=== PATIENT | female | born 2005 | race Caucasian/White ===

== ENCOUNTER 2024-05-27 10:02 | Day surgery (SDC) | payer OTHER ==
[~2024-05-27 10:02] MED LIST: Acetaminophen 500 MG TAB PO SCH
[2024-05-27] MEDS ORDERED: Acetaminophen 500 MG TAB ONE (10:30)
[2024-05-27] MEDS: Acetaminophen 500 MG TAB PO SCH (10:32)
[2024-05-27] MEDS: Ferumoxytol (ERSD) 510 MG in 0.9 % Sodium Chloride 150 ML IVPB SCH (10:52)
[2024-05-27 15:29] VITALS: BP 102/58; TEMP 98.2
== END 2024-05-27 15:34 | disposition home or self-care (01) ==
LOC: ONC/OP 10:02
PROVIDERS: ATTEND Family Medicine
DX: O99.019 Anemia complicating pregnancy, unspecified trimester (principal); Z3A.00 Weeks of gestation of pregnancy not specified
CPT/HCPCS: 96365; 96366; Q0139

== ENCOUNTER 2024-06-24 09:48 | Day surgery (SDC) | payer OTHER ==
[~2024-06-24 09:48] MED LIST changes: +Ferumoxytol (ERSD) 510 MG in 0.9 % Sodium Chloride 150 ML IVPB SCH
[2024-06-24] MEDS ORDERED: Acetaminophen 500 MG TAB ONE (09:53)
[2024-06-24] MEDS: Acetaminophen 500 MG TAB PO SCH (09:54)
[2024-06-24] MEDS: Ferumoxytol (ERSD) 510 MG in 0.9 % Sodium Chloride 150 ML IVPB SCH (10:47)
[2024-06-24 13:00] VITALS: TEMP 98
[2024-06-24 15:39] VITALS: BP 110/61
== END 2024-06-24 15:40 | disposition home or self-care (01) ==
LOC: ONC/OP 09:48
PROVIDERS: ATTEND Family Medicine
DX: O99.019 Anemia complicating pregnancy, unspecified trimester (principal); O99.619 Diseases of the digestive system complicating pregnancy, unspecified trimester; K90.9 Intestinal malabsorption, unspecified; Z3A.00 Weeks of gestation of pregnancy not specified
CPT/HCPCS: 96365; 96366; Q0139

== ENCOUNTER 2024-07-04 16:22 | Emergency (ER) | payer OTHER | END 2024-07-04 17:59 | disposition home or self-care (01) | LOC: ERS 16:22 | DX: N64.4 Mastodynia (principal) | CPT/HCPCS: 99283 ==

== ENCOUNTER 2025-04-08 19:49 | Emergency (ER) | payer OTHER ==
[2025-04-08 20:47] LABS: #Basophils 0.06 10x3/uL (0.0-0.2); #Eosinophils Less than 0.03 10x3/uL (0.0-0.7); #Monocytes 0.65 10x3/uL (0.11-0.59); #Neutrophils 14.77 10x3/uL (1.40-6.50); %Basophils 0.4 % (0.0-1.0); %Eosinophils 0.1 % (0.0-10.0); %Lymphocytes 5.1 % (21.0-51.0); %Monocytes 4.0 % (0.0-10.0); %Neutrophils 89.9 % (42.0-75.0); Hematocrit 43.9 % (36.0-47.0); Hemoglobin 14.6 g/dL (12.0-16.0); Mean Corpuscular Hemoglobin 30.2 pg (27.0-31.0); Mean Corpuscular Volume 90.7 fL (78.0-98.0); Platelet Count 205 10x3/uL (130-400); Red Blood Cell (RBC) Count 4.84 mill/uL (4.20-5.40); White Blood Cell (WBC) Count 16.43 10x3/uL (4.8-10.8)
[2025-04-08 20:54] LABS: BHCG - Serum POSITIVE (NEGATIVE); Pregs Control Background? CLEAR/WHITE (CLR/WHITE); Pregs Control Bar Appear? YES (CONTROL BAR)
[2025-04-08 21:01] LABS: ALT (SGPT) 8 U/L (Less than 34); AST (SGOT) 21 U/L (11-34); Albumin 3.9 g/dL (3.1-4.5); Alkaline Phosphatase 76 U/L (40-110); Anion Gap 19 mmol/L (10-20); BUN (Urea Nitrogen) 7 mg/dL (7.0-18.7); Bilirubin, Total 0.4 mg/dL (0.3-1.2); Calc. Creatinine Clearance 0 mL/min (70-130); Calcium 8.9 mg/dL (7.8-10.44); Carbon Dioxide 18 mmol/L (22-29); Chloride 106 mmol/L (98-107); Globulin 3.2 g/dL (2.4-3.5); Glucose 93 mg/dL (70-105); Lipase 26 U/L (8-78); Potassium 3.7 mmol/L (3.5-5.1); Sodium 139 mmol/L (136-145)
[2025-04-08 22:33] LABS: Magnesium 2.1 mg/dL (1.6-2.6)
[2025-04-08] MEDS ORDERED: Metoclopramide HCl 10 MG (2 mL) VIAL ONE (23:03)
[2025-04-08] MEDS ORDERED: diphenhydrAMINE 50 MG/ML VIAL ONE (23:03)
[2025-04-09 00:50] LABS: CAUTI Indications for Culture Pregnancy; Glucose, Urine (Dipstick) Normal (Negative); Leukocyte Negative Leu/uL (Negative); Protein, Urine (Dipstick) 30 mg/dL (Neg-Trace); RBC/HPF 0-3 HPF (0-3); Specific Gravity, Urine 1.034 (1.002-1.036); WBC/HPF 0-3 HPF (0-3)
[2025-04-09 00:51] LABS: Bacteria/HPF 1+ HPF (None Seen)
[2025-04-09 00:52] LABS: Urine Culture Reflex Yes Yes
== END 2025-04-09 01:25 | disposition home or self-care (01) ==
LOC: ERS 19:49
DX: O44.03 Complete placenta previa NOS or without hemorrhage, third trimester (principal); O21.2 Late vomiting of pregnancy; Z3A.31 31 weeks gestation of pregnancy
CPT/HCPCS: 36415; 76801; 80053; 81001; 83690; 83735; 84702; 84703; 85025; 87086; 96361; 96374; 96375; J1200; J2765